=== PATIENT | male | born 1970 ===

== ENCOUNTER 2018-01-13 17:01 | Emergency (ER) | payer MEDICARE, MEDICAID ==
[~2018-01-13 17:01] MED LIST: CYCL10TA29 PO; DIA5 PO; EMTR1TAB13 PO; HYDR-2954 PO; LITH600C6 PO; RITO100C7 PO; SER50 PO; TRA50 PO; [UNRECOGNIZED DRUG - CODE] PO
--- NOTE | 2018-01-13 17:49 | ER Report ---
History and Physical Time Seen By MD: 17:49 HPI/ROS CHIEF COMPLAINT: Shingles in the left eye HISTORY OF PRESENT ILLNESS: This is a 48-year-old male who presents to the emergency department for concerns of shingles to the left eye. Patient states that since Saturday he's had some lesions to the left side of his face around the left cheek a become progressively worse. Patient did follow up with urgent care today was diagnosed with shingles and given acyclovir. Patient states that he's taken one dose of acyclovir at noon and the lesions now feel like they've moved up the left cheek into the left eye. Patient states there is some itching , no visual changes no blurred vision. REVIEW OF SYSTEMS: Respiratory: No cough, no dyspnea. Cardiovascular: No chest pain, no palpitations. Gastrointestinal: No vomiting, no abdominal pain. Musculoskeletal: No back pain. Eyes: As above. Allergies: Coded Allergies: adhesive (Verified Allergy, Intermediate, RASH, 01/13/18) Uncoded Allergies: HAYFEVER (Allergy, Unknown, 09/03/14) Home Meds Reported Medications Valacyclovir Hcl (VALACYCLOVIR) 1,000 Mg Tablet, 1000 MG PO TID 01/13/18 Azithromycin (ZITHROMAX) 250 Mg Tablet, 1 TAB PO QDAY, TAB 01/13/18 Hydroxyzine Pamoate (HYDROXYZINE PAMOATE) 50 Mg Capsule, 50 MG PO PRN, CAPSULE 01/13/18 Divalproex Sodium (DEPAKOTE) 500 Mg Tablet.dr, 500 MG PO BID, TAB 01/13/18 Diazepam (Valium) 5 Mg Tab, 5 MG PO QPM, 0 Refills 04/02/11 Sertraline Hcl (Zoloft) 50 Mg Tab, 100 MG PO QDAY, 0 Refills 04/02/11 Ritonavir (Norvir) 100 Mg Capsule, 100 MG PO QAM, 0 Refills 04/02/11 Atazanavir Sulfate (Reyataz) 300 Mg Capsule, 300 MG PO QAM, 0 Refills 04/02/11 Emtricitabine/Tenofovir (Truvada Tablet) 1 Each Tablet, 1 EACH PO QAM, 0 Refills 04/02/11 Discontinued Reported Medications Cyclobenzaprine Hcl (CYCLOBENZAPRINE HCL) 10 Mg Tablet, 10 MG PO QDAY, #9 TAB 03/01/16 Barnum Carbonate (Barnum Carbonate) 600 Mg Capsule, 600 MG PO BID, 0 Refills 04/02/11 Past Medical/Surgical History Patient has a past medical and surgical history of chronic sinus infections, GERD, chronic elevated bilirubin secondary to medications, wears glasses, hard of hearing, HIV positive, bipolar, PTSD, congestive heart failure, left ankle injury. Reviewed Nurses Notes: Yes Hx Smoking: No Smoking Status: Former Smoker Hx Substance Use Disorder: No Hx Alcohol Use: Yes (RARE) Constitutional Vital Sign - Last 24 Hours 01/13/18 01/13/18 17:47 19:35 Temp 98.4 Pulse 110 110 Resp 16 18 B/P (MAP) 131/90 130/90 (103) Pulse Ox 93 93 O2 Delivery Room Air Room Air Physical Exam General Appearance: The patient is alert, has no immediate need for airway protection and no current signs of toxicity. Eyes: Pupils equal and round no injection. No obvious lesions to the globe itself. Fitzgerald lamp exam was negative for abrasions or flaring. Conjunctiva of the left eye is white, no fluorescein uptake, irises round and reactive, lens is clear, EOMs intact. Lesions to the inferior lid. Visual acuity 20/30 bilaterally, with correction. Respiratory: Chest is non tender, lungs are clear to auscultation. Cardiac: regular rate and rhythm. Gastrointestinal: Abdomen is soft and non tender, no masses, bowel sounds normal. Musculoskeletal: Neck: Neck is supple and non tender. Extremities have full range of motion and are non tender. Skin: No rashes or lesions. DIFFERENTIAL DIAGNOSIS: After history and physical exam differential diagnosis was considered for conjunctivitis, abrasion and ocular herpes zoster. Medical Decision Making ED Course/Re-evaluation ED Course The patient was admitted to room. A history physical were obtained. Differential diagnoses were considered. A Fitzgerald lamp exam was negative for for scene uptake, no lesions noted. There are some small lesions noted to the left lower lid and down the left cheek along the left nose. Patient did start his acyclovir patient did state that it was feeling a little bit better however he was concerned with the lesions around the eye. I did consult with Dr. Abel the deliverer outside at [facility] and she did state that the patient would be okay to go home tonight's they do have him following up with Dr. Mendieta tomorrow at the [facility]. She suggested trying some erythromycin ophthalmic ointment to the left eye. I did send the patient home with the ointment. I did review this with the patient's he was relieved and will follow-up tomorrow. Patient was encouraged to return to the ER for any other concerns or worsening symptoms. Decision to Disposition Date: Jan 13, 2018 Decision to Disposition Time: 19:27 Depart Departure Latest Vital Signs Vital Signs Date Time Temp Pulse Resp B/P (MAP) Pulse Ox O2 Delivery O2 Flow Rate FiO2 01/13/18 19:35 110 18 130/90 (103) 93 Room Air 01/13/18 17:47 98.4 Impression: Primary Impression: Herpes zoster Condition: Improved Disposition: HOME OR SELF-CARE Referrals: OPHTHALMOLOGY Patient Instructions: Shingles (ED) Additional Instructions: Drink plenty of fluids. Get plenty of rest. Continue taking the acyclovir as directed. You do have an appointment with Dr. Mendieta at the [facility], phone # [phone]. Apply the erythromycin ointment to the left eye 3 times a day, put a small ribbon underneath the left lid. Return to the emergency department for any other concerns or worsening symptoms. Problem Qualifiers Primary Impression: Herpes zoster Herpes zoster complications: without complications Qualified Codes: B02.9 - Zoster without complications [employer]-BC Jan 13, 2018 17:49
[2018-01-13] MEDS ORDERED: HYDR50CA48 PO (17:52)
[2018-01-13] MEDS ORDERED: DIVA500T98 PO (17:52)
[2018-01-13] MEDS ORDERED: AZIT-1 PO (17:55)
[2018-01-13] MEDS ORDERED: VALA100059 PO (17:55)
[2018-01-13] MEDS ORDERED: PROPARACAINE 0.5% OP 15ML BTL OU ONE (18:05)
[2018-01-13] MEDS ORDERED: FLUORESCEIN SOD 1 MG 1 EA STRP OU ONE (18:05)
[2018-01-13] MEDS ORDERED: ERYTHROMYCIN OP OINT 5MG/GM TU OU ONE (19:25)
[2018-01-13 19:35] VITALS: BP 130/90
== END 2018-01-13 19:35 | disposition home or self-care (01) ==
LOC: ER 17:03
DX: B02.9 Zoster without complications (principal)
CPT/HCPCS: 99282; A9270